=== PATIENT | male | born 1985 | race African-American/Black ===

== ENCOUNTER 2017-01-15 16:33 | Emergency (ER) | payer OTHER ==
[2017-01-15 17:11] VITALS: BP 139/86; PULSE 83; TEMP 98.3; BMI 30.3
[2017-01-15] MEDS ORDERED: traMADol HCL 50 MG TABLET PO ONE (17:16)
--- NOTE | 2017-01-15 17:24 | PDOC ---
History of Present Illness - General Chief Complaint: Pain, Acute Stated Complaint: ABD PAIN Time Seen by Provider: 01/15/17 16:47 History Source: Patient - History of Present Illness Timing/Duration: reports: constant Quality: reports: severe Past History - Past Medical History Allergies/Adverse Reactions: Allergies Allergy/AdvReac Type Severity Reaction Status Date / Time No Known Allergies Allergy Verified 01/15/17 17:10 Home Medications: Ambulatory Orders Tramadol HCl 50 mg PO Q6H #8 tablet MDD 200 mg 01/15/17 Thyroid Disease: Yes (sickle cell) - Psycho/Social/Smoking Cessation Hx Anxiety: No Suicidal Ideation: No Smoking History: Unknown if ever smoked Have you smoked in the past 12 months: No Information on smoking cessation initiated: No Hx Alcohol Use: No Drug/Substance Use Hx: No Substance Use Type: None Review of Systems - Review of Systems Constitutional: No: Fever ABD/GI: No: Nausea, Vomiting : Yes: Testicular Swelling, Testicular Pain. No: Burning, Dysuria, Discharge , Frequency, Flank Pain, Hematuria, Incontinence, Urgency, Lesions *Physical Exam - Vital Signs Last Vital Signs Temp Pulse Resp BP Pulse Ox 98.3 F 83 18 139/86 100 01/15/17 16:33 01/15/17 16:33 01/15/17 16:33 01/15/17 16:33 01/15/17 16:33 - Physical Exam General Appearance: Yes: Appropriately Dressed. No: Apparent Distress HEENT: positive: Normal Voice Neck: positive: Supple Respiratory/Chest: negative: Respiratory Distress Gastrointestinal/Abdominal: positive: Soft. negative: Tender Male Genitalia: positive: testicular tenderness. negative: discharge, testicular mass, hematuria Musculoskeletal: negative: CVA Tenderness Integumentary: positive: Dry, Warm Neurologic: positive: Fully Oriented, Alert, Normal Mood/Affect Medical Decision Making - Medical Decision Making 01/15/17 17:25 31 yo M, no sig hx, states he was diagnosed w/ L hydrocele at [facility] yesterday and has appt tomorrow but presents today for pain control. States he is taking motrin w/ no improvement. States labs and ua done at [facility] were normal. Pt well ibis and in NAD w/ ttp to superior aspect of L testes w/ no significant swelling and no skin changes. Pt discharged w/ small dose of tramadol w/ f/u tomorrow 01/15/17 17:28 *DC/Admit/Observation/Transfer Diagnosis at time of Disposition: Hydrocele Qualifiers: Hydrocele type: unspecified Qualified Code(s): N43.3 - Hydrocele, unspecified - Discharge Dispostion Disposition: HOME Condition at time of disposition: Good - Prescriptions Prescriptions: Tramadol HCl 50 mg PO Q6H #8 tablet MDD 200 mg - Patient Instructions Printed Discharge Instructions: Hydrocele Additional Instructions: Take medication as directed and follow up with urology tomorrow as already scheduled
[2017-01-15] MEDS ORDERED: traMADol HCL 50 MG TABLET ONE (17:31)
== END 2017-01-15 17:40 | disposition home or self-care (01) ==
LOC: JER 16:33
DX: N43.3 Hydrocele, unspecified (principal)
CPT/HCPCS: 99282-25